=== PATIENT | male | born 1950 | race Caucasian/White ===

== ENCOUNTER 2017-06-16 11:05 | Emergency (ER) | payer OTHER ==
[~2017-06-16] VITALS: Ht 172.7 cm; Wt 76.0 kg
[2017-06-16 11:17] VITALS: BP 138/77; PULSE 68; RESP 16; TEMP 97.7; O2SAT 97
[2017-06-16 11:44] VITALS: BP 129/83; PULSE 69; RESP 17; O2SAT 100
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
[2017-06-16] MEDS ORDERED: CYCL1TAB29 PO (12:43)
== END 2017-06-16 12:57 | disposition home or self-care (01) ==
LOC: PHEFT 11:05
DX: S29.012A Strain of muscle and tendon of back wall of thorax, initial encounter (principal); V89.2XXA Person injured in unspecified motor-vehicle accident, traffic, initial encounter; E11.9 Type 2 diabetes mellitus without complications
CPT/HCPCS: 72110; 99283

== ENCOUNTER 2018-03-30 20:46 | Emergency (ER) | payer OTHER ==
[~2018-03-30] VITALS: Ht 172.7 cm; Wt 75.5 kg
[~2018-03-30 20:46] MED LIST: CYCL10TA PO
[2018-03-30 21:03] VITALS: BP 145/76; PULSE 81; RESP 18; TEMP 98.7; O2SAT 97
[2018-03-30] MEDS ORDERED: METF1000 PO (21:13)
[2018-03-30] MEDS ORDERED: ATOR20TA15 PO (21:13)
[2018-03-30] MEDS ORDERED: GLIP1TAB60 PO (21:13)
[2018-03-30] MEDS ORDERED: ACETAMINOPHEN 325 MG TAB PO ONE (21:45)
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
[2018-03-30] MEDS ORDERED: ROBA750T PO (23:00)
[2018-03-30] MEDS ORDERED: TYLETAB34 PO (23:00)
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
[2018-03-30 23:15] VITALS: BP 123/72
--- NOTE | 2018-03-31 09:06 | EKG ---
Date Performed: 03/30/2018 Time Performed: 22:52:20 PTAGE: 67 years EKG: Sinus rhythm NONSPECIFIC T-WAVE ABNORMALITY BORDERLINE ECG NO PREVIOUS TRACING DOCTOR: Jasson Garcia Interpretating Date/Time 03/31/2018 09:05:25
== END 2018-03-30 23:18 | disposition home or self-care (01) ==
LOC: PHEFT 20:46
DX: R07.89 Other chest pain (principal); V89.2XXA Person injured in unspecified motor-vehicle accident, traffic, initial encounter; R94.31 Abnormal electrocardiogram [ECG] [EKG]; E78.00 Pure hypercholesterolemia, unspecified; E11.9 Type 2 diabetes mellitus without complications
CPT/HCPCS: 71046; 93005; 99284